=== PATIENT | female | born 1975 | race Asian ===

== ENCOUNTER 2016-09-10 09:12 | Inpatient (IN) | payer OTHER ==
[~2016-09-10] VITALS: Ht 152.4 cm; Wt 72.6 kg
[~2016-09-10 09:12] MED LIST: GENTAMICIN IV ONE; SODIUM CHLORIDE 0.9% IV ONE
[2016-09-10] MEDS ORDERED: Lactated Ringer's 1,000 ML IV PRN (09:26)
[2016-09-10] MEDS ORDERED: Methylergonovine 0.2 mg/mL Inj IM PRN (09:30)
[2016-09-10] MEDS ORDERED: Oxytocin 30 Units/500 mL LR 30 UNITS in IV Premix 1 EACH IV PRN ×2 (09:30→15:10)
[2016-09-10] MEDS ORDERED: Sodium Chloride LOK Flush 10 mL Syringe IVFLUSH PRN (09:30)
[2016-09-10] MEDS ORDERED: Carboprost 250 mCg/mL Inj IM PRN (09:30)
[2016-09-10] MEDS ORDERED: Hemorrhage Kit, Post Partum XX ONE (09:30)
[2016-09-10] MEDS ORDERED: Oxytocin 10 Unit/mL Inj IM PRN (09:30)
--- NOTE | 2016-09-10 09:38 | PCM.HPOB ---
Subjective Date of Service: Sep 10, 2016 Referring Provider: Admitting Physician: Flavio Barcenas MD Primary Care Physician: Nopcp Attending Physician: Flavio Barcenas MD Chief Complaint contractions History of Present History of Present Illness 40 Y/o at 39w4d JEY 09/13/16 by LMP and consistent with first trimester US. Contractions, 5 cm dilated at presentation. no gush of fluid. no other complaint. Obstetrical Complications: Other Past Medical History Obstetrical History: G1: 1992 Left salpingectomy via laparotomy for ectopic complicated with Blood transfusion G2: Vacuum assisted vaginal delivery at 40 weeks , 7 lb 12 oz , M. G3: Vacuum assisted vaginal delivery at 40 weeks , 8 lb 10 oz , F Gynecologic History: Menarche at age 12, no Hx of STI, no Hx of abn pap smear. Medical History: 1. Asthma, last episode 2 years ago. 2. Blood transfusion secondary to laparotomy for ectopic . Surgical History: 1992 Left salpingectomy via laparotomy for ectopic complicated with Blood transfusion Hx Tobacco Use: No Hx Alcohol Use: No Hx Substance Use: No Past Family History Family History non-contributory No twins No congenital or developmental disease. Review of Systems ROS 10 points ROS is negative except for Items in HPI. Allergy Coded Allergies: No Known Allergies (Unverified , 09/10/16) Exam Vital Signs Exam 140 minimal variability, no accelerations , positive early decelerations. contractions Q 2-4 min Objective 119/68 94 36.6 RR 18 Constitutional: Well-developed HEENT: Atraumatic, PERRLA Lungs: Clear to Auscultation Heart: Regular Rate/Rhythm, Normal S1, Normal S2 Abdomen: Gravid, Other (EFW 7.5 lb ) Extremities: Pulses Palpable x4 Neurological/Psychiatric: Alert, Oriented X3, Cooperative Neuro: Reflexes 2+ Labs/Diagnostics Additional Information O positive, Antibody screen negative. Rubella immune. HIV NR HBsAg NR RPR NR GC/Ct negative 03/02/16 pap not on in recorded. 1 hr 112 GBS negative 08/17/16 OB Intrapartum Assessment/Plan Assessment 40 Y/o at 39w4d JEY 09/13/16 by LMP and consistent with first trimester US. H/o Asthma last episode 2 yrs ago. Active labor Desires epidural Admit with orders and labs. Continue FHT monitoring. Jhonathan Arevalo MD Sep 10, 2016 09:38
[2016-09-10] MEDS ORDERED: PREN1TAB87 PO (09:46)
[2016-09-10] MEDS ORDERED: fentaNYL 2 mCg/mL-Bupiv 0.125% 100 ML EPIDURAL SCH (09:55)
[2016-09-10] MEDS ORDERED: EPHEDrine Sulfate 50 mg/mL Inj IVPUSH PRN (09:55)
[2016-09-10] MEDS ORDERED: Lactated Ringer's 500 ML IV ONE (09:55)
[2016-09-10] MEDS ORDERED: Atropine 1 mg/10 mL (Code) Syringe IVPUSH PRN (09:55)
[2016-09-10 09:59] LABS: Mean Corpuscular Hemoglobin 30.4 pg (27.0-35.0); Mean Corpuscular Volume 89.9 fL (81-100)
[2016-09-10] MEDS: Lactated Ringer's 1,000 ML IV SCH ×5 (10:35→21:29)
--- NOTE | 2016-09-10 10:37 | PCM.HPANE ---
Patient Data Date of Service: Sep 10, 2016 Surgeon Admitting Provider:Flavio Barcenas MD Attending Provider:Flavio Barcenas MD Primary Care Physician:Nopcp Other Provider:Jhonathan Arevalo MD Reason for Visit Early Term Labor Check EARLY TERM LABOR CHECK Ht/WT & BMI Body Mass Index Allergies Coded Allergies: No Known Allergies (Unverified , 09/10/16) Diabetes History Hx Diabetes?: No MRSA MRSA: No Medications Hypertension Medication: No Reported Medications Vit W-Ca,Fe,FA(<1 mg) ( Vitamins)1 Each Tablet1 Each PO DAILY 09/10/16 History History of ENT Problems?: No Hx of Heart Problems?: No Respiratory History: Positive for:: Asthma Hx Neurologic Problems?: No Hx of GI Problems?: No Hx of Problems?: No Female Hx: Positive for:: Currently Hx Musculoskeletal Problems?: No Hx of Psycho/Social Problems?: No Hx Alcohol Use: NoHx Substance Use: No Smoking Status: Current Every Day Smoker Stop/Bang Treated for Sleep Apnea?: No Do You Have a CPAP Machine?: No S-Snoring: Do You Snore Loudly: No T-Tired: feel tired, fatigued: No O-Obsered: Observed not breath: No P-Blood Pressure: treated: No B- Body Mass Index > 35 kg/m2: No A- Age over 50: No N- Neck Large Circumference: No G- Gender Male: No Risk Assessment Category Category 1A: Patient has history of documented sleep apnea, and HAS NOT received any narcotic, sedative or anesthesia administration during this stay. Category 1B: Patient has history of documented sleep apnea, and HAS received any narcotic , sedative or anesthesia administration during this stay Category 2: Patient has SUSPECTED Obstructive Sleep Apnea, and HAS received any narcotic , sedative or anesthesia administration during this stay. Category 3: Patient has SUSPECTED Obstructive Sleep Apnea and HAS NOT received narcotic, sedative or anesthesia administration during this stay. Category 4: Outpatient in Procedural Areas with known sleep apnea or who screen positive for High Risk via the STOP/BANG questionnaire. Exam Exam General Appearance: Oriented X3 HEENT/AIRWAY: MP 2 Lungs: Clear to Auscultation Heart: Exam Unremarkable Meds/Labs/Diagnostics Labs Test 09/10/16 09:42 White Blood Count 16.9th/mm3 (3.8-10.1) Red Blood Count 4.34mil/mm3 (3.90-5.20) Hemoglobin 13.2g/dL (12.0-15.6) Hematocrit 39.0% (35.0-46.0) Mean Corpuscular Volume 89.9fL (81-100) Mean Corpuscular Hemoglobin 30.4pg (27.0-35.0) Mean Corpuscular Hemoglobin Concent 33.8% (32.0-37.0) Red Cell Distribution Width 13.2% (12.3-15.4) Platelet Count 204bil/L (150-400) Plan Impression Patient chart reviewed, patient interviewed and anesthestic plan with risks, benefits, and alternatives discussed, and informed consent obtained. ASA Physical Status: ASA1 Normal Healthy Anesthetic Plan: Epidural Bene/Risks/Altern/Consents: Yes HP Complete Prior to Induction: Yes Stephen Remy MD Sep 10, 2016 10:37
[2016-09-10] MEDS ORDERED: Oxytocin 10 Unit/mL Inj ONE (11:43)
[2016-09-10] MEDS ORDERED: Ondansetron 2 mg/mL 2 mL Inj ONE (11:43)
[2016-09-10] MEDS ORDERED: Phenylephrine/NS 100 mCg/mL 10 mL Syringe IVPUSH ONE (11:43)
[2016-09-10] MEDS: Sodium Chloride LOK Flush 10 mL Syringe IVFLUSH SCH (16:30)
[2016-09-10 18:53] LABS: BASOPHILS % (AUTO) 0.1 % (0-3); EOSINOPHILS % (AUTO) 0.2 % (0-5); MONOCYTES % (AUTO) 5.8 % (4-12); Mean Corpuscular Hemoglobin 30.7 pg (27.0-35.0); Mean Corpuscular Volume 91.2 fL (81-100); NEUTROPHILS % (AUTO) 87.8 % (40-74); Platelet Count 220 bil/L (150-400)
[2016-09-10] MEDS: Ampicillin Inj 2,000 MG in 0.9% Sodium Chloride 100 ML IV SCH ×2 (19:58→22:13)
--- NOTE | 2016-09-10 20:58 | PCM.PNOBIP ---
Subjective Date of Service Sep 10, 2016 Subjective comfortable on epidural. Pain Management: Epidural Gastrointestinal: No N/V Labs Laboratory Tests 09/10/16 18:45: White Blood Count 19.5, Red Blood Count 3.97, Hemoglobin 12.2, Hematocrit 36.2, Mean Corpuscular Volume 91.2, Mean Corpuscular Hemoglobin 30.7, Mean Corpuscular Hemoglobin Concent 33.7, Red Cell Distribution Width 13.2, Platelet Count 220, Neutrophils (%) (Auto) 87.8, Lymphocytes (%) (Auto) 5.7, Monocytes (% ) (Auto) 5.8, Eosinophils (%) (Auto) 0.2, Basophils (%) (Auto) 0.1 Exam Vital Signs Vital Signs baseline 175 minimal-moderate variability, intermittent variable deceleration and few early and late decelerations. category 2. [place]: Q 2-3 min MVUs:250 Vital Signs: VS reviewed, concerns are (T 38.4, HR 100-114, BP 126/59 ) Heart Tracings Heart Tones Baseline bpm Tocometry/IUPC Contraction frequency in minutes: MVUs: Sterile Vaginal Exam Cervical Dilation: 8 cms Cervical Effacement: 90 % Station: +1 Exam Abdomen: Abdomen soft, Abdomen non-tender General: Oriented X3 OB Intrapartum Assessment/Plan Assessment 40 Y/0 at 39w4 Ative labor , SROM at 1055 am 09/10/16 GBS negative Chorioamnionitis ( maternal fever, leukocytosis, tachycardia) Blood culture drawn, Ampicillin and gentamicin started, Tylenol, IV hydration, o2 and position change. Amnioinfusion for variable decelerations. Will continue to monitor if continue to have category 2 tracing will proceed with primary CD. Plan of care was discussed with patient, patient agree with the plan of care. Jhonathan Arevalo MD Sep 10, 2016 20:58
[2016-09-10] MEDS ORDERED: Sodium Citrate-Citric Acid 15 mL Solution ONE (21:27)
[2016-09-10] MEDS: Clindamycin Inj 900 MG in IV Premix 1 EACH IV SCH (21:52)
[2016-09-10] MEDS ORDERED: fentaNYL-PF 50 mCg/mL 2 mL Inj IVPUSH PRN (23:35)
[2016-09-11] MEDS: Lactated Ringer's 1,000 ML IV SCH (00:09)
[2016-09-11] MEDS: Sodium Chloride LOK Flush 10 mL Syringe IVFLUSH SCH (00:30)
--- NOTE | 2016-09-11 00:42 | PCM.ANEP1 ---
Post Anesthesia Phase 1 PACU Phase 1 Assessment Date of Service: Sep 10, 2016 Anesthetic Administered: Epidural Level of Alertness: Awake, talking Nausea or Vomiting: No Oxygen Delivery: Room Air Lungs: Clear to Auscultation Stephen Remy MD Sep 11, 2016 00:42
--- NOTE | 2016-09-11 00:43 | PCM.ANEP2 ---
Post Anesthesia Evaluation ASA/CMS Post Anesthesia VS in Patient's Normal Range?: Yes Resp Stable; Airway Patent?: Yes CV Function & Hydration Stable: Yes Mental Status Recovered?: Yes Pain control Satisfactory?: Yes N/V Control Satisfactory?: Yes Stephen Remy MD Sep 11, 2016 00:43
[2016-09-11] MEDS ORDERED: Lactated Ringer's 1,000 ML IV SCH (00:53)
[2016-09-11] MEDS ORDERED: Sodium Chloride LOK Flush 10 mL Syringe IVFLUSH PRN (00:55)
[2016-09-11] MEDS ORDERED: hydrOXYzine Pamoate 25 mg Capsule PO PRN (00:55)
[2016-09-11] MEDS ORDERED: LANOlin HPA 7 Gm Ointment TOPICAL PRN (00:55)
[2016-09-11] MEDS ORDERED: Oxytocin 30 Units/500 mL LR 30 UNITS in IV Premix 1 EACH IV PRN (00:55)
[2016-09-11] MEDS ORDERED: Methylergonovine 0.2 mg/mL Inj IM PRN (00:55)
[2016-09-11] MEDS ORDERED: Carboprost 250 mCg/mL Inj IM PRN (00:55)
[2016-09-11] MEDS ORDERED: Ondansetron 2 mg/mL 2 mL Inj IVPUSH PRN (00:55)
[2016-09-11] MEDS ORDERED: Acetaminophen IV 1,000 MG in IV Premix 1 EACH IV PRN (00:55)
[2016-09-11] MEDS ORDERED: Oxytocin 10 Unit/mL Inj IM PRN (00:55)
[2016-09-11] MEDS ORDERED: Hemorrhage Kit, Post Partum XX ONE (00:55)
[2016-09-11] MEDS ORDERED: diphenhydrAMINE 50 mg Capsule PO PRN (00:55)
[2016-09-11] MEDS ORDERED: HYDROmorphone 1 mg/mL Inj IVPUSH PRN (00:55)
[2016-09-11] MEDS ORDERED: Promethazine 50 mg Rectal Suppository RECTAL PRN (00:55)
[2016-09-11] MEDS ORDERED: Promethazine 25 mg Rectal Suppository RECTAL PRN (01:46)
--- NOTE | 2016-09-11 03:21 | OP ---
[address] [address] OPERATIVE REPORT PATIENT: MARCO MEDINA : 1975 MR#: [id number] ADMIT: 09/10/2016 JOB ID: [id number] DATE OF SURGERY: 09/10/2016 SURGEON: Jhonathan Arevalo MD SUPERINTENDENT ELECTRIC POWER: Oswaldo Yusuf DO Optomechanical Engineer was required for retraction and exposure, and safe delivery of the infant. PREOPERATIVE DIAGNOSIS(ES): 1. Nonreassuring heart tones, remote from delivery. 2. Chorioamnionitis. POSTOPERATIVE DIAGNOSIS(ES): 1. Nonreassuring heart tones, remote from delivery. 2. Chorioamnionitis. PROCEDURE: 1. Primary low transverse section. 2. Lysis of adhesions. 3. hemorrhage. COMPLICATIONS: hemorrhage. BLOOD LOSS: 1300 mL. ANESTHESIA: Epidural. INTRAVENOUS FLUIDS: 700 mL. URINE OUTPUT: 150 mL was blood-tinged at the end of the procedure. SPECIMENS: Placenta was sent to Pathology evaluation. Placenta cultures were obtained. INDICATIONS: This is a 40-year-old, 6 para 2-0-3-2, who presented at 39 weeks and 4 days with active labor. Cervix at presentation was 5 cm, 90%, and -2 at 9:40 a.m. September 10, 2016. The patient progressed in labor to have spontaneous rupture of membranes at 10:55, clear fluid. Then, on reassessment at 1515, a forebag was ruptured and cervix was 6, 80%, and -2. Clear fluid was noted. In reassessment an hour later, cervix remained 6 cm, 80%, and -2. Pitocin was started for augmentation of labor. At 1812, a low-grade temperature of 37.9 noted, 100.2 Fahrenheit. Maternal heart rate was 104. heart tones baseline 150. Minimal to moderate variability, with positive accelerations and intermittent variable decelerations to 130s. Then gradually, heart tones baseline continued to rise to 160s and maternal temperature rise to 38.2, at 1900. White blood cell count lary from 16.9 to 19.5, and maternal heart rate lary up to 115. No foul-smelling fluid and no uterine tenderness. Antibiotics were started for chorioamnionitis, ampicillin and gentamicin. The heart tones baseline continue to rise even after Tylenol and IV hydration, and after antibiotics were started. heart tones up to 175 and 180s, minimal variability, late and variable decelerations, not responding to amnio- infusion. Cervix was 8 cm, 70% and +1. Secondary to nonreassuring heart tones that are not responding to intrauterine resuscitation including position change, IV hydration, oxygen, Tylenol to treat maternal fever and antibiotics, risk, benefits, and alternatives of section were discussed with the patient. Risks include, and not limited to, risk of infection, bleeding, injury to adjacent organs, risk of anesthesia and risk of laceration were explained and all questions were answered. The patient desires to proceed with a primary section. FINDINGS: Normal uterus, ovaries, and right fallopian tube. Left fallopian tube absent secondary to previous salpingectomy. Bowel adhesions to the rectus muscles posterior sheath. No adhesion to the lower uterine segment. Light meconium-stained fluid. Female infant, weight 3785 g, equivalent to 8 pounds 5 ounces. Apgars 9 at one minute and 9 at five minutes. DESCRIPTION OF PROCEDURE: After informed consent was obtained, the patient was taken to the operation room. Epidural anesthesia was bolused to adequate level. She was placed in supine position with left lateral tilt. Abdomen was prepped in usual sterile manner. The patient was draped. After confirmation of adequate anesthesia, a skin incision was made along the line of the previous Pfannenstiel skin scar for her previous salpingectomy secondary to previous history of ectopic . The initial skin incision was carried down to the fascia with sharp dissection and Bovie cautery. The initial fascial incision was made with a scalpel and was extended bilaterally with curved Mayos. The rectus muscles were in the midline starting high in the abdomen. An area clear of the adhesions was identified in the peritoneum and was entered bluntly. Careful examination to the peritoneal area were performed and adhesions noted with palpable stool and bowel behind the peritoneum, so the peritoneal opening was extended sharply with Metzenbaum scissors through an area clear of the vascularity. After releasing some of the omental adhesions that was double clamped, transected and ligated. The peritoneal opening was further extended, with good access to the lower uterine segment. Bladder blade was placed. The lower uterine segment was identified and a bladder flap was created. The bladder blade was repositioned to protect the bladder. The uterine incision was made in the lower uterine segment with a scalpel and was extended bilaterally with gentle traction. A cephalic presented fetus female was delivered in occiput anterior position with the assistance of fundal pressure. No nuchal cord. Shoulders delivered, followed by the infant's body. Delayed cord clamp was performed after 1 minute. Apgars were 9 at one minute and 9 at five minutes, respectively. Infant weight was 3785 g. Cord blood was collected for typing. The placenta was delivered manually intact. The uterus fundus examined. The uterus was easily mobilized and exteriorized out of the abdominal cavity. The uterine incision was cleared of any remaining clots and debris. The uterine incision was closed with 0 Vicryl in a running, interlocking fashion. Several interrupted stitches of 0 Vicryl was placed for hemostasis, followed by an imbricating layer using 0 Monocryl. Uterine incision was hemostatic. The posterior cul-de-sac was irrigated and cleared of any remaining clots and debris. The uterus was placed back into the abdominal cavity. The uterine incision was re-examined and hemostasis was ensured. Examination of the bowel loop that was adherent to the posterior sheath of the rectus muscles was performed. No evidence of lacerations or injury. The rectus muscles were approximated in the midline with simple interrupted stitches of 0 chromic. The subfascial layer was examined and no bleeding was noted. The fascia was closed with 0 Vicryl in a running fashion. The subcutaneous layer was reapproximated with 2-0 chromic in interrupted fashion. The skin was closed with 4-0 Vicryl in subcuticular fashion, followed by Steri-Strips. The skin was injected with 1% lidocaine. A total of 20 cc prior to the skin closure for adequate anesthesia. The patient received ampicillin and clindamycin dose prior to the skin incision. Gentamicin doses every 24 hours. Will continue antibiotic until the patient is afebrile for 24 hours postop. All instrument, needles and sponge counts were correct x2. IJhonathan MD, was present and scrubbed for the entire procedure. [facility] HOSPITALMatt
[2016-09-11] MEDS: Ampicillin Inj 2,000 MG in 0.9% Sodium Chloride 100 ML IV SCH ×2 (04:09→10:33)
[2016-09-11] MEDS: Clindamycin Inj 900 MG in IV Premix 1 EACH IV SCH ×2 (05:57→13:40)
[2016-09-11] MEDS: Ascorbic Acid 500 mg Tablet PO SCH (08:08)
[2016-09-11] MEDS ORDERED: Morphine PF 1 mg/mL 10 mL Inj ONE (11:43)
[2016-09-11] MEDS ORDERED: Ondansetron 2 mg/mL 2 mL Inj ONE (11:43)
[2016-09-11] MEDS ORDERED: Bupiv-Spinal 0.75%/Dex 8.25% 2 mL Inj ONE (11:43)
--- NOTE | 2016-09-11 13:17 | PCM.PNOBPP ---
Subjective Date of Service Sep 11, 2016 Post : Primary Ceserean Delivery Visit History This is a 40YO at 39w4d gestation admitted to L&D on 09/10/2016 with contractions and 5 cm dilation at presentation. Patient had SROM at 10:55 am on 09/10/2016 after which she developed fever, leukocytosis; baby developed tachycardia. She was started on Ampicillin and Gentamicin for chorioamnionitis. Patient continued to be febrile with nonreassuring heart rate and decision was made to proceed with delivery. patient delivered female infant, weight 3785 g, equivalent to 8 pounds 5 ounces. Apgars 9 at one minute and 9 at five minutes. Patient and the baby were recovering in a stable condition. Subjective Patient is doing well. Pain is controlled with oral pain medications. Patient is . She is ambulating with assist. She has block catheter. She is tolerating PO intake well. Lochia: Light Pain Management: PO pain meds, Epidural Gastrointestinal: No N/V, Passing Flatus Postop Activity: Ambulating Independently Group B Strep Results: Negative Rubella: Immune Blood Type: O RH Type: Positive Labs Laboratory Tests 09/10/16 18:45: White Blood Count 19.5, Red Blood Count 3.97, Hemoglobin 12.2, Hematocrit 36.2, Mean Corpuscular Volume 91.2, Mean Corpuscular Hemoglobin 30.7, Mean Corpuscular Hemoglobin Concent 33.7, Red Cell Distribution Width 13.2, Platelet Count 220, Neutrophils (%) (Auto) 87.8, Lymphocytes (%) (Auto) 5.7, Monocytes (% ) (Auto) 5.8, Eosinophils (%) (Auto) 0.2, Basophils (%) (Auto) 0.1 Exam Vital Signs Vital Signs: VS reviewed, stable Exam Abdomen: Fundus firm : Block catheter Extremities: No tenderness/swelling Lungs: Clear to Auscultation Heart: Exam Unremarkable General: Alert, Oriented X3, Cooperative Surgical Wound : Incision General Appearence: Steri Strips, Incision Healing Dressing & Drainage Status: Dry & Intact OB Post Assessment/Plan Assessment 1. S/p primary low transverse section, POD # 1. 2. Chorioamnionitis 3. hemorrhage Pain Evaluation: Adequate Pain Control VTE Mechanical Devices: Intermittant Pneumatic CD Post plan: Continue routine post care, Discharge home tomorrow Plan: - Continue routine management and anticipate discharge on POD #2 - D/C Ampicillin and Gentamicin - Continue iron supplement - Monitor labs Attending Statement The patient was seen and examined together with Dr. Manuela Jones DO on 2016 and I agree with the history, exam and plan as outlined in the note above. Manuela Jones DO Sep 11, 2016 13:17 Anay Oden MD Sep 16, 2016 11:57
[2016-09-11] MEDS: oxyCODONE-Acetamin 5-325 mg Tablet PO PRN ×3 (13:48→22:52)
[2016-09-11] MEDS ORDERED: GENTAMICIN IV SCH (20:00)
[2016-09-11] MEDS ORDERED: SODIUM CHLORIDE 0.9% IV SCH (20:00)
[2016-09-12] MEDS: oxyCODONE-Acetamin 5-325 mg Tablet PO PRN ×2 (03:28→07:19)
[2016-09-12] MEDS ORDERED: IBUP800T28 PO (06:50)
[2016-09-12] MEDS ORDERED: Ascorbic Acid PO (06:50)
[2016-09-12] MEDS ORDERED: DOCU-41 PO (06:50)
[2016-09-12] MEDS ORDERED: FERR-74 PO (06:50)
[2016-09-12] MEDS ORDERED: OXYC1TAB24 PO (06:50)
[2016-09-12 07:02] LABS: Mean Corpuscular Hemoglobin 30.4 pg (27.0-35.0); Mean Corpuscular Volume 93.3 fL (81-100)
--- NOTE | 2016-09-12 07:18 | PCM.DIOB ---
KLAUDIA SYKES DO 09/12/16 0718: Obstetrical Disch Instruction Date of Service: Sep 12, 2016 Dates of Hospitalization Date of Hospital Admission Sep 10, 2016 at 09:20 Providers Admitting Physician: Flavio Barcenas MD Primary Care Physician: Bruce Attending Physician: Flavio Barcenas MD Discharge Diagnosis Discharge Diagnosis 1. S/p primary low transverse section, POD # 2. 2. Chorioamnionitis 3. hemorrhage Problems: Diet Discharge Diet: No restrictions Activity Discharge Activity-General: Pelvic Rest for 6 weeks, Try not to overdue, Be up and about, Balance rest and activity, Activity as pain allows, No lifting >10 pounds for 4-6 weeks Dressing and Incisional Care Dressing Care: Keep dressing clean, dry & intact, Allow Steri Stripes to fall off Hygiene: May shower, DO NOT soak incision under water, NO bathtub, hot tub or whirlpool Additional Instructions Discharge Instructions Continue your vitamin. Please take the iron and vitamin c together for your anemia. Do not take more pain medication (Percocet) than is necessary -- less is better. Percocet pills have Tylenol (acetaminophen) in them at 325mg per pill. Do not take Tylenol in addition to your pain medication but should take one or the other. Both iron and Percocet can give you constipation so you have also been given a prescription for docusate to keep you regular. Be sure to follow up in 2 weeks and then again [facility] at [facility]. Pelvic rest for 6 weeks (nothing per vagina including intercourse, tampons) If you have a fever greater than 100.4, please call [facility]. There is always someone it application development manager to talk to. If you have an increase in bleeding, call [facility]. If you have a lot of bleeding suddenly, especially if you have symptoms of dizziness & weakness with it, get emergency help. If you start experiencing extreme depression, especially if you feel that you are a danger to yourself or your family, seek emergency help. You have been through a lot -- BE SURE TO TAKE CARE OF YOURSELF. You have been sent home with the following prescriptions: - Percocet 5/325 mg, take 1 tab every 4-6 hours as needed for pain. - Colace 100 mg twice a day as needed for constipation. - Ferrous sulfate 325 mg every day. - Vitamin C 500 mg every day. Take with iron. - Ibuprofen 800mg take 1 tab every 8 hours as needed for pain. Follow Up Plan Follow Up Plan Follow-up in 2 and 6 weeks with [facility]. Follow-up Provider (F9): Anay Oden MD Follow-up appointment: Weeks (2 and 6) Call your provider for: Fever or Chills, Shortness of breath, Heavy vaginal bleeding, Epigastric pain, Excessive constipation, Vaginal discomfort, Red painful breasts Elisa Oseguera MD 09/17/16 1435: Obstetrical Disch Instruction Attending Statement I saw and evaluated patient. I agree with above plan. KLAUDIA SYKES DO Sep 12, 2016 07:18 Elisa Oseguera MD Sep 17, 2016 14:35
[2016-09-12] MEDS: Ascorbic Acid 500 mg Tablet PO SCH (07:19)
--- NOTE | 2016-09-12 07:26 | PCM.DC.OB ---
Obstetrical Discharge Summary Date of Service Sep 12, 2016 Date of hospital admission Sep 10, 2016 at 09:20 Date of Discharge: Sep 12, 2016 Providers Admitting Physician: Flavio Barcenas MD Primary Care Physician: Bruce Attending Physician: Flavio Barcenas MD Diagnosis at Time of Discharge 1. S/p primary low transverse section, POD # 2. 2. Chorioamnionitis 3. hemorrhage Problems: Invasive procedures Primary low transverse section Date of Procedure: Sep 10, 2016 Brief History and Physical: 40 Y/o at 39w4d JEY 09/13/16 by LMP and consistent with first trimester US. Hospital Course: The patient is a 40 year old female s/p primary low transverse section postop day 2. She was admitted to L&D on 09/10/16 at 39w4d gestation with contractions and 5 cm dilation at presentation. Patient had SROM at 10:55 am on 09/10/2016 after which she developed fever, leukocytosis; baby developed tachycardia. She was started on Ampicillin and Gentamicin for chorioamnionitis. Patient continued to be febrile with nonreassuring heart rate and decision was made to proceed with delivery. Patient delivered female , weight 3785 g, equivalent to 8 pounds 5 ounces. Apgars 9 at one minute and 9 at five minutes. Patient and the baby recovering in a stable condition. Upon discharge patient doing well. Pain controlled with oral pain medications. Patient is , ambulating without assistance, and urinating without difficulty. She has not had a BM but is passing flatus. She is tolerating PO intake. Patient would like Nexplanon for control. Bleeding is light. ([Ascorbic Acid]) 500 MG TABLET 500 MG PO DAILYWM Prescribed by: KLAUDIA SYKES DO Docusate Sodium (Colace) 100 Mg Capsule 100 MG PO BID Prescribed by: KLAUDIA SYKES DO Ferrous Sulfate (Feosol) 325 Mg Tablet 325 MG PO BIDWM Prescribed by: KLAUDIA SYKES DO Ibuprofen (Ibuprofen) 800 Mg Tablet 800 MG PO Q8H PRN PRN For Pain Prescribed by: KLAUDIA SYKES DO Vit W-Ca,Fe,FA(<1 mg) ( Vitamins) 1 Each Tablet 1 EACH PO DAILY (Reported) Last Taken: Unknown Dose on 3/17/17 0800 oxyCODONE-Acetaminophen 5-325 mg ( oxyCODONE-Acetaminophen 5-325 mg) 1 Each Tablet 1 TAB PO Q4-6H PRN PRN For Pain Prescribed by: KLAUDIA SYKES, DO Discharge Medications: - Percocet 5/325 mg, take 1 tab every 4-6 hours as needed for pain. - Colace 100 mg twice a day as needed for constipation. - Ferrous sulfate 325 mg every day. - Vitamin C 500 mg every day. Take with iron. - Ibuprofen 800mg take 1 tab every 8 hours as needed for pain. - Continue vitamin. Follow-up plan Follow-up [facility] and [facility] with [facility]. Discharge Diet: No restrictions Discharge Activity-General: Pelvic Rest for 6 weeks, Try not to overdue, Be up and about, Balance rest and activity, Activity as pain allows, Other (No lifting >10 pounds for 4-6 weeks) Patient instructions Continue your vitamin. Please take the iron and vitamin c together for your anemia. Do not take more pain medication (Percocet) than is necessary -- less is better. Percocet pills have Tylenol (acetaminophen) in them at 325mg per pill. Do not take Tylenol in addition to your pain medication but should take one or the other. Both iron and Percocet can give you constipation so you have also been given a prescription for docusate to keep you regular. Be sure to follow up in 2 weeks and then again in 6 weeks at [facility]. Pelvic rest for 6 weeks (nothing per vagina including intercourse, tampons) If you have a fever greater than 100.4, please call [facility]. There is always someone business division chair to talk to. If you have an increase in bleeding, call [facility]. If you have a lot of bleeding suddenly, especially if you have symptoms of dizziness & weakness with it, get emergency help. If you start experiencing extreme depression, especially if you feel that you are a danger to yourself or your family, seek emergency help. You have been through a lot -- BE SURE TO TAKE CARE OF YOURSELF. You have been sent home with the following prescriptions: - Percocet 5/325 mg, take 1 tab every 4-6 hours as needed for pain. - Colace 100 mg twice a day as needed for constipation. - Ferrous sulfate 325 mg every day. - Vitamin C 500 mg every day. Take with iron. - Ibuprofen 800mg take 1 tab every 8 hours as needed for pain. Attending Statement: I saw and evaluated patient. I agree with above plan. KLAUDIA SYKES DO Sep 12, 2016 07:26 Elisa Oseguera MD Sep 17, 2016 14:35
[2016-09-12] MEDS ORDERED: Methylergonovine 0.2 mg/mL Inj IM ONE (11:43)
--- NOTE | 2016-09-15 11:09 | PATH ---
SURGICAL PATHOLOGY Attending Physician:Jhonathan Arevalo CASE STATUS: Signed Out PATIENT NAME: MARCO MEDINA PID: [id number] : 1975 DATE COLLECTED:09/10/2016 00:00 SPECIMEN: Placenta CLINICAL HISTORY: CHORIOAMNIONITIS 1. PLACENTA FINAL DIAGNOSIS: 1.PLACENTA (485 GRAMS): MATURE PLACENTA WITH ACUTE CHORIOAMNIONITIS AND FUNISITIS. ICD10 CODE O41.1 GROSS DESCRIPTION: The specimen is received unfixed, labeled with the patient's name and consists of an intact placenta and includes placental disc (485 g, 16.3 x 14.5 x 3.0 cm), umbilical cord (length-4.2 cm, diameter-1.2 x 0.7 cm) and membranes. The membranes are ruptured at the free edge of the placenta and are translucent. The umbilical cord is attached 4.8 cm from the edge of the placenta and contains 3 vessels. The surface is smooth and shiny with no evidence of meconium. The maternal surface is dark maroon with normal cotyledon formation. The placental disc is spongy and contains an orange-yellow rubbery nodule (3.5 x 2.5 x 1.5 cm) at the periphery. No hematomas, other nodules, masses, or lesions are identified. Section code: (A) edge of placenta with membranes; (B) umbilical cord; (C-D, E-F, G-H, I) placenta, 4 full thickness sections. Note: Formalin added 1100. 09/13/16 JM MICRO DESCRIPTION: See diagnosis. ICD-9 CODES: CPT CODES: 1: 67732 Electronically Signed Out Alexi Liu MD [facility] [address], [place] [address] Technical component performed at [facility], [facility] [address], [address]
== END 2016-09-12 11:44 | disposition home or self-care (01) | DRG 766 ==
LOC: FBCO 09:12 → FBC 09:20
PROVIDERS: ADMIT Legal Medicine; ATTEND Legal Medicine
PROC: 4A1HX4Z Monitoring of Products of Conception, Cardiac Electrical Activity, External Approach (ICD-10-PCS; 2016-09-10)
PROC: 10D00Z1 Extraction of Products of Conception, Low, Open Approach (ICD-10-PCS; principal; 2016-09-10 22:25)
DX: O41.1230 Chorioamnionitis, third trimester, not applicable or unspecified (principal); O09.523 Supervision of elderly multigravida, third trimester; Z3A.39 39 weeks gestation of pregnancy; Z37.0 Single live birth